=== PATIENT | female | born 1995 | race Caucasian/White ===

== ENCOUNTER → 2025-04-03 13:51 | Outpatient (REF) | payer BC, SELFPAY | LOC: MRI 3T 13:51 | PROVIDERS: ATTENDING PHYSICIAN Physician Assistant; FAMILY PHYSICIAN Family Medicine | DX: M54.12 Radiculopathy, cervical region (principal); G43.809 Other migraine, not intractable, without status migrainosus | CPT/HCPCS: 72141 ==

== ENCOUNTER → 2025-04-04 10:42 | Outpatient (REF) | payer BC, SELFPAY ==
[2025-04-04 10:07] LABS: Hematocrit 42.5 % (37.0-47.0); Hemoglobin 14.1 g/dL (12.0-16.0); Mean Corp Hgb Conc. 33.2 g/dL (33.0-37.0); Mean Corpuscular Volume 89.5 fL (81.0-99.0); Nucleated Red Blood Cells % 0 %; Platelet Count 235 10^3/uL (130-400); Red Cell Dist. Width 12.9 % (11.5-14.5)
[2025-04-04 10:57] LABS: ALT (SGPT) 16 U/L (0-35); AST (SGOT) 21 U/L (14-36); Albumin 4.6 g/dl (3.5-5.0); Alkaline Phosphatase 57 U/L (38-126); Blood Urea Nitrogen 9 mg/dl (7-17); Calcium 9.1 mg/dl (8.4-10.2); Carbon Dioxide 23 mmol/L (22-30); Chloride 108 mmol/L (98-107); Glucose 93 mg/dl (70-99); Potassium 5.1 mmol/L (3.5-5.1); Sodium 138 mmol/L (135-145); Total Protein 7.3 g/dl (6.3-8.2); eGFR > 60.00
[2025-04-04 11:08] LABS: Vitamin D, 25-OH*** 44.8 ng/mL (30-80)
[2025-04-04 11:26] LABS: Ferritin 27.2 ng/ml (6.24-137)
[2025-04-04 11:41] LABS: Vitamin B12 527 pg/ml (239-931)
== END ==
LOC: MRI 3T 10:42
PROVIDERS: ATTENDING PHYSICIAN Nurse Practitioner Adult Health; FAMILY PHYSICIAN Family Medicine
DX: G43.111 Migraine with aura, intractable, with status migrainosus (principal); H93.13 Tinnitus, bilateral; R53.83 Other fatigue
CPT/HCPCS: 36415; 70544; 70553; 80053; 82306; 82607; 82728; 84443; 85025; 86618; A9575

== ENCOUNTER → 2025-06-10 17:00 | Outpatient (REF) | payer BC, SELFPAY | LOC: RAD 17:00 | PROVIDERS: FAMILY PHYSICIAN Family Medicine | DX: K59.09 Other constipation (principal) | CPT/HCPCS: 74018 ==

== ENCOUNTER 2025-06-16 09:38 | Outpatient (RCR) | payer BC, SELFPAY | END 2025-06-16 23:59 | disposition home or self-care (01) | LOC: RPT 09:38 | PROVIDERS: ATTENDING PHYSICIAN Physician Assistant; FAMILY PHYSICIAN Family Medicine | DX: M54.12 Radiculopathy, cervical region (principal); G44.86 Cervicogenic headache; Z73.6 Limitation of activities due to disability; M50.30 Other cervical disc degeneration, unspecified cervical region | CPT/HCPCS: 97110; 97140; 97162 ==

== ENCOUNTER 2025-07-02 16:54 | Outpatient (RCR) | payer BC, SELFPAY | END 2025-07-18 06:27 | disposition home or self-care (01) | LOC: RPT 16:54 | PROVIDERS: ATTENDING PHYSICIAN Physician Assistant; FAMILY PHYSICIAN Family Medicine | DX: M54.12 Radiculopathy, cervical region (principal); G44.86 Cervicogenic headache; Z73.6 Limitation of activities due to disability; M50.30 Other cervical disc degeneration, unspecified cervical region | CPT/HCPCS: 97110 ==